=== PATIENT | female | born 1955 | race Caucasian/White ===

== ENCOUNTER 2025-07-12 09:29 | Day surgery (SDC) | payer MEDICARE ==
[2025-07-12] VITALS (11 sets, daily range): BP systolic 100–141; BP diastolic 57–80; PULSE 48–70; RESP 12–16; O2SAT 93–97
[~2025-07-12] VITALS: Ht 154.9 cm; Wt 80.3 kg
[2025-07-12] MEDS ORDERED: sodium bicarbonate 1meq/ml syr 150 ML in dextrose 5%-water 1,000 ML IV ONE (09:50)
--- NOTE | 2025-07-12 09:54 | ELECTROCARDIOGRAPH REPORT ---
[facility] Test Date: 2025-07-12 Test Time: 09:47:56 Pat Name: DARCIE MADDOX Department: SHORT STAY 1ST FLOOR Patient ID: [facility]-[id number] Room: Gender: F Contracts Specialist: GRETA : [id number] Requested By: BRIDGET JIMÉNEZ Order Number: [id number] Reading MD: Dr. Nicko Oliva Measurements Intervals [place] Rate: 58 P: 31 AR: 155 QRS: 57 QRSD: 93 T: 36 QT: 412 QTc: 405 Interpretive Statements Sinus rhythm Electronically Signed On 07-12-2025 12:42:[address] Nicko Oliva Please click the below link to view image of tracing.
[2025-07-12] MEDS ORDERED: BENA5TAB39 PO (10:02)
[2025-07-12] MEDS ORDERED: LEVO50TA8 PO (10:02)
[2025-07-12] MEDS ORDERED: ESOM40CA49 PO (10:02)
[2025-07-12 10:33] LABS: MEAN PLATELET VOLUME 7.3 FL (7.4-10.4); RED CELL DISTRIBUTION WIDTH 13.1 % (11.5-14.5)
[2025-07-12] MEDS ORDERED: midazolam 1 mg/ML 2ml injection ONE ×3 (10:38→12:40)
[2025-07-12] MEDS ORDERED: LIDOcaine 1% (10mg/ml) 2ml vial ONE (10:38)
[2025-07-12] MEDS ORDERED: fentaNYL/PF 50MCG/1 ML 2ML syringe ONE ×2 (10:38→12:40)
[2025-07-12] MEDS ORDERED: verapamil 2.5 mg/ml inj IV ONE (10:38)
[2025-07-12] MEDS ORDERED: nitroGLYCERIN 500mcg/5mL D5W 5 ML IV ONE (10:39)
[2025-07-12] MEDS ORDERED: heparin 1,000unit/ml 10ml vial 10 ML ONE (10:39)
[2025-07-12] MEDS ORDERED: iohexol 350 MG/ML 50ML vial IV ONE (10:39)
[2025-07-12 10:42] LABS: CREATININE 1.06 MG/DL (0.40-0.90); TOTAL CARBON DIOXIDE 32.4 MMOL/L (24-32); eCRCL 38 ML/MIN; eGFR 51 ML/MIN
[2025-07-12 10:43] LABS: INR 1.1 INR
[2025-07-12] MEDS ORDERED: LIDOcaine 1% 30ml preserv. free vial ONE (12:42)
[2025-07-12] MEDS ORDERED: protamine sulfate 10mg/ml inj. ONE (12:51)
--- NOTE | 2025-07-12 13:36 | CARDIOLOGY REPORT ---
DATE OF SERVICE: 07/12/2025 DICTATING PHYSICIAN: BRIDGET JIMÉNEZ DO CARDIAC CATHETERIZATION REPORT REFERRING PHYSICIAN: Bridget Jiménez DO CLINICAL HISTORY: This is a 69-year-old woman who has been having increasingly more frequent episodes of exertionally triggered chest pressure that is relieved by rest. She is a nonsmoker and does not have diabetes, but because of the nature of her symptoms and the fact that the symptoms have been increasing with less exertional stimulus, she is regarded as having unstable angina and therefore has a left heart catheterization has been ordered. PROCEDURES PERFORMED: * Left heart catheterization * Left ventriculography * Selective coronary arteriography * 45 minutes of conscious sedation supervision DESCRIPTION OF PROCEDURE: The patient was sedated with fentanyl and Versed. She was then prepared and draped in the usual manner. The right radial area was infiltrated with 1% lidocaine using a micropuncture set and a Seldinger technique. A 6-Thai sheath was placed in the radial artery. 200 mcg of nitroglycerin and 2.5 mg of verapamil were directly injected into the radial artery. 5000 units of heparin were given in a peripheral IV. Left heart catheterization and left ventriculography were performed using a 6-Thai pigtail catheter. Coronary arteriography was performed using a 5-Thai Ultimate II catheter. Multiple catheters were used in an effort to engage the left coronary, but all were unsuccessful due to a short aorta and a very leftward takeoff for the brachiocephalic artery. Therefore, a 7-Thai sheath was placed in the right common femoral artery using a micropuncture set in a Seldinger technique. Using this sheath, a 6-Thai 3.5 left Nallely catheter was easily positioned in the left main coronary and arteriography of the left coronary system was then performed. Next, the sheath was removed and the access site was successfully treated with Mynx. A vas band was applied after removal of the sheath of the radial artery. RESULTS: HEMODYNAMIC DATA: The left ventricular end diastolic pressure was 7 mmHg. There was no significant gradient across the aortic valve. LEFT VENTRICULOGRAM: The left ventriculogram was technically satisfactory. The ejection fraction was about 55%. CORONARY ARTERIOGRAPHY: The coronary arteriograms were technically satisfactory. The patient had a right dominant system. RIGHT CORONARY ARTERY: The right coronary was a large main stem vessel. There was a medium to large posterior descending branch and a small to medium-sized posterolateral branch. There were no obstructive lesions in the right coronary artery. LEFT MAIN CORONARY ARTERY: The left main was a large unobstructed vessel bifurcating in the left anterior descending and circumflex coronary arteries. LEFT ANTERIOR DESCENDING CORONARY ARTERY: The LAD was a medium to large vessel, although small in caliber over its distal one-third. It did have a transapical distribution. There was a medium to large diagonal taking its origin from the mid vessel. There were no obstructive lesions in the left anterior descending coronary artery. CIRCUMFLEX CORONARY ARTERY: The circumflex was a large main stem vessel. There was a large bifurcated first obtuse marginal and no other distal branches of any significance. CONCLUSIONS: 1. No evidence for obstructive coronary artery disease. 2. Left ventricular function appears to be at the lower limit of normal. The LVEF was about 55%. RECOMMENDATIONS: Ongoing medical therapy. BRIDGET JIMÉNEZ DO TID: [id number] RECEIPT: [id number] QUYEN/SAMUEL
[2025-07-12] MEDS ORDERED: HYDROcodone/acetaminophen 10/325mg tab PO PRN (13:50)
[2025-07-12] MEDS ORDERED: ondansetron/PF 4mg/2ml inj IV PRN (13:50)
[2025-07-12] MEDS ORDERED: HYDROcodone/acetaminophen 5mg/325mg tablet PO PRN (13:50)
== END 2025-07-12 18:50 | disposition home or self-care (01) ==
LOC: SSTAY O 09:29
PROVIDERS: ATTEND Internal Medicine Cardiovascular Disease
DX: R07.9 Chest pain, unspecified (principal); I10 Essential (primary) hypertension; E03.9 Hypothyroidism, unspecified; E78.5 Hyperlipidemia, unspecified; K21.9 Gastro-esophageal reflux disease without esophagitis; Z79.890 Hormone replacement therapy; Z79.899 Other long term (current) drug therapy; Z90.49 Acquired absence of other specified parts of digestive tract; Z90.710 Acquired absence of both cervix and uterus; Z90.79 Acquired absence of other genital organ(s); Z98.41 Cataract extraction status, right eye; Z98.42 Cataract extraction status, left eye; Z98.890 Other specified postprocedural states; Z82.5 Family history of asthma and other chronic lower respiratory diseases
CPT/HCPCS: 36415; 80048; 83735; 85025; 85610; 93005; 93458; 99152; 99153; A6258; A6402; C1894; J1644; J2003; J2250; J2720; J3010; J3490; J7030; Q0163; Q9967; Z7610; A6449